=== PATIENT | male | born 1940 | race Caucasian/White ===

== ENCOUNTER 2020-02-11 18:18 | Inpatient (IN) | payer OTHER ==
[2020-02-11 18:38] VITALS: BMI 23.4
[2020-02-11] MEDS ORDERED: Ondansetron PF 4 MG/2 ML Vial IVP PRN (18:56)
[2020-02-11] MEDS ORDERED: diphenhydrAMINE 50 MG/ML VIAL IVP PRN (18:56)
[2020-02-11] MEDS ORDERED: Haloperidol Lactate 5 MG/ML VIAL SLOW IVP PRN (18:58)
[2020-02-11] MEDS ORDERED: Bisacodyl 10 MG SUPP PR PRN (18:59)
[2020-02-11] MEDS: Scopolamine 1.5 mg/72 hour Patch TOP SCH (21:13)
[2020-02-11] MEDS: Haloperidol Lactate 5 MG/ML VIAL SLOW IVP SCH (21:13)
[2020-02-11] MEDS: Morphine 2 MG/ML VIAL SLOW IVP PRN (22:56)
[2020-02-12] MEDS: Haloperidol Lactate 5 MG/ML VIAL SLOW IVP SCH ×6 (01:32→20:14)
[2020-02-12] MEDS: Morphine 2 MG/ML VIAL SLOW IVP PRN ×2 (03:05→22:32)
[2020-02-13] MEDS: Haloperidol Lactate 5 MG/ML VIAL SLOW IVP SCH ×6 (00:28→21:15)
[2020-02-13] MEDS: Morphine 2 MG/ML VIAL SLOW IVP PRN ×2 (03:08→11:45)
[2020-02-13] MEDS: Morphine 2 MG/ML VIAL SLOW IVP SCH ×2 (13:39→21:35)
[2020-02-14] MEDS: Haloperidol Lactate 5 MG/ML VIAL SLOW IVP SCH ×6 (01:24→21:27)
[2020-02-14] MEDS: Morphine 2 MG/ML VIAL SLOW IVP SCH ×4 (05:54→22:23)
[2020-02-14] MEDS: Morphine 2 MG/ML VIAL SLOW IVP PRN (08:02)
[2020-02-14] MEDS: Scopolamine 1.5 mg/72 hour Patch TOP SCH (18:12)
[2020-02-15] MEDS: Morphine 2 MG/ML VIAL SLOW IVP SCH ×4 (01:29→14:07)
[2020-02-15] MEDS: Haloperidol Lactate 5 MG/ML VIAL SLOW IVP SCH ×4 (01:30→14:07)
[2020-02-15 08:08] VITALS: BP 119/61; TEMP 99.7
== END 2020-02-15 14:00 | disposition expired | DRG 951 ==
LOC: 2SE 18:18 → T4-B 22:34
PROVIDERS: ADMIT Family Medicine; ATTEND Family Medicine
DX: Z51.5 Encounter for palliative care (principal); I61.9 Nontraumatic intracerebral hemorrhage, unspecified; I16.1 Hypertensive emergency; R65.10 Systemic inflammatory response syndrome (SIRS) of non-infectious origin without acute organ dysfunction; E85.4 Organ-limited amyloidosis; Z79.899 Other long term (current) drug therapy; I68.0 Cerebral amyloid angiopathy
CPT/HCPCS: J1630; J2270